=== PATIENT | female | born 1945 | race Caucasian/White ===

== ENCOUNTER → 2017-02-14 | Outpatient (CLI) | payer BC ==
--- NOTE | 2017-02-14 15:19 | RADRPT ---
EXAM DATE/TIME: 02/14/2017 14:40 [place] COMPARISON: No previous studies available for comparison. INDICATIONS : COPD. RADIATION DOSE: 5.61 CTDIvol (mGy) MEDICAL HISTORY : Congestive hearrt failure. Cardiovascular disease SURGICAL HISTORY : CABG Stints ENCOUNTER: Initial ACUITY: 2 months PAIN SCALE: 0/10 LOCATION: chest TECHNIQUE: Volumetric scanning of the chest was performed. Using automated exposure control and adjustment of t he mA and/or kV according to patient size, radiation dose was kept as low as reasonably achievable to obtain optimal diagnostic quality images. DICOM format image data is available electronically for r eview and comparison. Follow-up recommendations for detected pulmonary nodules are based at a minimum on nodule size and pa tient risk factors according to Fleischner Society Guidelines. FINDINGS: LUNGS: Minimal atelectasis/scarring in the anterior lingula. 4 mm nodule in the left upper lobe. Very minima l centrilobular emphysema in the upper lobes. PLEURAE: There is no pleural thickening or pleural effusion. MEDIASTINUM: Dense coronary artery calcifications with post surgical features of prior CABG and valve replacement. No significant pericardial effusion. No gross mediastinal adenopathy. AXILLAE: Within normal limits. No lymphadenopathy. MUSCULOSKELETAL: Within normal limits for patient age. MISCELLANEOUS: The visualized upper abdominal organs demonstrate no acute abnormality. CONCLUSION: 1. Very minimal upper lobe predominant centrilobular emphysema. 2. 4 mm nodule in the left upper lobe. No followup is recommended for low risk patients. Followup exa mination may be performed in 12 months if patient is high risk, per 2017 Fleischner criteria. 3. Postsurgical features of prior CABG and cardiac valve replacement. Evelio Velasco MD on February 14, 2017 at 15:13 Board Certified Radiologist. This report was verified electronically.
== END ==
LOC: HRSP 12:27
DX: J44.9 Chronic obstructive pulmonary disease, unspecified (principal); I50.9 Heart failure, unspecified; I10 Essential (primary) hypertension; E11.9 Type 2 diabetes mellitus without complications
CPT/HCPCS: 71250; 94060; 94726; 94729